=== PATIENT | female | born 1975 | race Caucasian/White ===

== ENCOUNTER 2017-04-18 18:01 | Emergency (ER) | payer OTHER ==
[~2017-04-18] VITALS: Ht 172.7 cm; Wt 65.8 kg
[2017-04-18] MEDS ORDERED: FAMOTIDINE. 20 MG/2 ML VIAL IV ONE ×2 (19:00→19:06)
[2017-04-18] MEDS ORDERED: methylPREDNISolone SOD SUCC 125 MG/2 ML VIAL IV ONE (19:00)
[2017-04-18] MEDS ORDERED: diphenhydrAMINE 50 MG/1 ML VIAL IV ONE (19:00)
[2017-04-18] MEDS ORDERED: diphenhydrAMINE 50 MG/1 ML VIAL ONE (19:06)
[2017-04-18] MEDS ORDERED: methylPREDNISolone SOD SUCC 125 MG/2 ML VIAL ONE (19:06)
--- NOTE | 2017-04-18 20:09 | NUR ---
Patient discharged to home in stable conditon. Written and verbal after care instructions given. Patient verbalizes understanding of instructions. pt staying at the bedside of her partner as partner had also checked in for medical attention... pt is alert, oriented x 3, no resp distress noted or reported upon discharge assessment...
[2017-04-18 20:10] VITALS: BP 97/62
== END 2017-04-18 20:12 | disposition home or self-care (01) ==
LOC: ER 18:06
DX: R21 Rash and other nonspecific skin eruption (principal); T78.2XXA Anaphylactic shock, unspecified, initial encounter
CPT/HCPCS: 96374; 96375; 99284; A4663; J1200; J2930; J3490

== ENCOUNTER 2017-04-30 23:08 | Emergency (ER) | payer OTHER ==
[~2017-04-30] VITALS: Ht 167.6 cm; Wt 61.7 kg
[2017-04-30] MEDS ORDERED: diphenhydrAMINE 50 MG/1 ML VIAL IV ONE (23:30)
[2017-04-30] MEDS ORDERED: methylPREDNISolone SOD SUCC 125 MG/2 ML VIAL IV ONE (23:30)
[2017-04-30] MEDS ORDERED: FAMOTIDINE. 20 MG/2 ML VIAL IV ONE ×2 (23:30→23:56)
[2017-04-30] MEDS ORDERED: methylPREDNISolone SOD SUCC 125 MG/2 ML VIAL ONE (23:56)
[2017-04-30] MEDS ORDERED: diphenhydrAMINE 50 MG/1 ML VIAL ONE (23:56)
[2017-05-01 00:04] LABS: BILIRUBIN,DIRECT 0.1 mg/dL (0.0-0.2); BILIRUBIN,TOTAL 0.4 mg/dL (0.2-1.0); CREATININE 0.9 mg/dL (0.6-1.3); POTASSIUM 4.1 mmol/L (3.5-5.1)
[2017-05-01 00:08] LABS: BASOPHILS # (AUTO) 0.3 K/uL (0.0-8.0); BASOPHILS % (AUTO) 1.7 % (0.0-2.0); EOSINOPHILS # (AUTO) 0.3 K/uL (0.0-0.7); EOSINOPHILS % (AUTO) 1.5 % (0.0-7.0); HEMATOCRIT 40.3 % (37-47); HEMOGLOBIN 13.2 G/DL (12.0-16.0); LYMPHOCYTES # (AUTO) 1.1 K/UL (0.8-4.8); LYMPHOCYTES % (AUTO) 6.1 % (20.5-51.5); MEAN CORPUSCULAR HEMOGLOBIN 29.4 UUG (27.0-31.0); MEAN CORPUSCULAR HGB CONC 33 g/dL (32.0-37.0); MEAN CORPUSCULAR VOLUME 89.3 FL (81.0-99.0); MONOCYTES # (AUTO) 0.6 K/UL (0.1-1.30); MONOCYTES % (AUTO) 3.1 % (0.0-11.0); NEUTROPHILS # (AUTO) 15.6 K/UL (1.8-8.9); NEUTROPHILS % (AUTO) 87.6 % (38.5-71.5); PLATELET COUNT (AUTO) 233 K/UL (150-450); RED BLOOD CELL COUNT(AUTO) 4.51 MIL/UL (4.2-5.4); WHITE BLOOD COUNT (AUTO) 17.9 K/UL (4.0-11.2)
--- NOTE | 2017-05-01 00:30 | NUR ---
Patient discharged to home in stable conditon. Written and verbal after care instructions given. Patient verbalizes understanding of instructions. Ambulated from ER with stable gait. Peripheral IV access removed. All belongings with patient. Patient will be driven home by significant other in a private vehicle. patient is aware not to drive or operate heavy machinery post Benadryl intake. Patient states will comply, private vehicle with party bus driver awaiting outside of ER for patient.
[2017-05-01 00:32] VITALS: BP 112/74
== END 2017-05-01 00:33 | disposition home or self-care (01) ==
LOC: ER 23:10
DX: F41.9 Anxiety disorder, unspecified (principal); R21 Rash and other nonspecific skin eruption
CPT/HCPCS: 36415; 84703; 85025; 85730; A4663; J1200; J2930; J3490

== ENCOUNTER → 2017-07-23 | Emergency (ER) | payer BC, MEDICAID ==
[~2017-07-23] VITALS: Ht 170.2 cm; Wt 56.7 kg
[2017-07-23 19:01] LABS: *URINE HCG, QUAL NEGATIVE (NEGATIVE)
--- NOTE | 2017-07-23 19:10 | NUR ---
DR. GOTTLIEB AT BEDSIDE FOR MSE.
[2017-07-23 19:17] LABS: BASOPHILS # (AUTO) 0.1 K/uL (0.0-8.0); BASOPHILS % (AUTO) 0.5 % (0.0-2.0); EOSINOPHILS # (AUTO) 0.3 K/uL (0.0-0.7); EOSINOPHILS % (AUTO) 2.8 % (0.0-7.0); HEMATOCRIT 39.4 % (37-47); HEMOGLOBIN 13.1 G/DL (12.0-16.0); LYMPHOCYTES # (AUTO) 2.3 K/UL (0.8-4.8); LYMPHOCYTES % (AUTO) 22.6 % (20.5-51.5); MEAN CORPUSCULAR HGB CONC 33 g/dL (32.0-37.0); MEAN CORPUSCULAR VOLUME 90.1 FL (81.0-99.0); MONOCYTES # (AUTO) 0.8 K/UL (0.1-1.30); MONOCYTES % (AUTO) 7.6 % (0.0-11.0); NEUTROPHILS # (AUTO) 6.8 K/UL (1.8-8.9); NEUTROPHILS % (AUTO) 66.5 % (38.5-71.5); PLATELET COUNT (AUTO) 260 K/UL (150-450); RED BLOOD CELL COUNT(AUTO) 4.38 MIL/UL (4.2-5.4); WHITE BLOOD COUNT (AUTO) 10.3 K/UL (4.0-11.2)
[2017-07-23 19:23] LABS: POTASSIUM 3.7 mmol/L (3.5-5.1)
[2017-07-23 19:35] LABS: BILIRUBIN,DIRECT 0.1 mg/dL (0.0-0.2); BILIRUBIN,TOTAL 0.3 mg/dL (0.2-1.0); TOTAL PROTEIN, SERUM 7.1 g/dL (6.4-8.2)
--- NOTE | 2017-07-23 20:52 | NUR ---
Patient discharged to home in stable conditon. Written and verbal after care instructions given. Patient verbalizes understanding of instructions. PATIENT LEFT WITH STABLE GAIT.
[2017-07-23 20:54] VITALS: BP 101/58
== END | disposition home or self-care (01) ==
LOC: ER 18:17
DX: M54.12 Radiculopathy, cervical region (principal)
CPT/HCPCS: 36415; 70030-TC; 71010; 84703; 85025; 85730; 93005; A4663

== ENCOUNTER 2018-09-04 07:49 | Emergency (ER) | payer BC, MEDICAID ==
[~2018-09-04] VITALS: Ht 167.6 cm; Wt 61.7 kg
[2018-09-04] MEDS ORDERED: OMEP20CA10 PO (07:59)
[2018-09-04] MEDS ORDERED: KETOROLAC TROMETHAMINE 30 MG INJ ONE (08:27)
[2018-09-04] MEDS ORDERED: MAG HYDROX/AL HYDROX/SIMETH 30 ML LIQUID UDC ONE (08:28)
[2018-09-04] MEDS ORDERED: MAG HYDROX/AL HYDROX/SIMETH 30 ML LIQUID UDC PO ONE (08:30)
[2018-09-04] MEDS ORDERED: KETOROLAC TROMETHAMINE 30 MG INJ IM ONE (08:30)
[2018-09-04 08:45] VITALS: BP 112/80
--- NOTE | 2018-09-04 08:46 | NUR ---
Patient discharged to home in stable conditon. Written and verbal after care instructions given. Patient verbalizes understanding of instructions.
== END 2018-09-04 08:46 | disposition home or self-care (01) ==
LOC: ER 07:49
DX: F41.9 Anxiety disorder, unspecified (principal); K21.9 Gastro-esophageal reflux disease without esophagitis
CPT/HCPCS: 93005; 96372; 99284; J1885; A4663

== ENCOUNTER 2018-09-09 09:32 | Emergency (ER) | payer MEDICAID ==
[~2018-09-09] VITALS: Ht 167.6 cm; Wt 58.1 kg
[~2018-09-09 09:32] MED LIST: OMEP20CA10 PO
--- NOTE | 2018-09-09 10:06 | NUR ---
Patient discharged to home in stable conditon. Written and verbal after care instructions given to patient. Patient verbalizes understanding of instructions.
== END 2018-09-09 10:07 | disposition home or self-care (01) ==
LOC: ER 09:32
DX: B80 Enterobiasis (principal); K21.9 Gastro-esophageal reflux disease without esophagitis
CPT/HCPCS: A4663

== ENCOUNTER 2019-02-07 18:34 | Emergency (ER) | payer MEDICAID ==
[~2019-02-07] VITALS: Ht 162.6 cm; Wt 62.1 kg
--- NOTE | 2019-02-07 19:47 | NUR ---
Dr. Callaway at bedside for MSE.
[2019-02-07] MEDS ORDERED: PANTOPRAZOLE SODIUM 40 MG TABLET.DR PO ONE ×2 (19:59→20:00)
[2019-02-07] MEDS ORDERED: MAG HYDROX/AL HYDROX/SIMETH 30 ML LIQUID UDC PO ONE (20:00)
[2019-02-07] MEDS ORDERED: MAG HYDROX/AL HYDROX/SIMETH 30 ML LIQUID UDC ONE (20:00)
--- NOTE | 2019-02-07 20:21 | NUR ---
Patient discharged to home in stable conditon. Written and verbal after care instructions given. Patient verbalizes understanding of instructions. Pt ambulated out of ER with steady gait, no acute signs of distress, VSS, all belongings taken.
[2019-02-07 20:22] VITALS: BP 101/70
== END 2019-02-07 20:23 | disposition home or self-care (01) ==
LOC: ER 18:34
DX: K29.70 Gastritis, unspecified, without bleeding (principal); K21.9 Gastro-esophageal reflux disease without esophagitis; Z79.899 Other long term (current) drug therapy
CPT/HCPCS: 93005; A4663

== ENCOUNTER 2019-04-22 11:20 | Emergency (ER) | payer MEDICAID ==
[~2019-04-22] VITALS: Ht 162.6 cm; Wt 61.2 kg
--- NOTE | 2019-04-22 12:02 | NUR ---
Patient discharged to home in stable conditon. Written and verbal after care instructions given. Patient verbalizes understanding of instructions. Stressed follow up.
== END 2019-04-22 12:06 | disposition home or self-care (01) ==
LOC: ER 11:20
DX: H00.14 Chalazion left upper eyelid (principal); K21.9 Gastro-esophageal reflux disease without esophagitis
CPT/HCPCS: A4663

== ENCOUNTER 2019-04-23 20:49 | Emergency (ER) | payer MEDICAID ==
[~2019-04-23] VITALS: Ht 165.1 cm; Wt 63.5 kg
--- NOTE | 2019-04-23 21:14 | NUR ---
Pt. ambulated into ED w/ c/o L eye pain, was seen x2 days ago for chalazion and given eye drop abx,
[2019-04-23] MEDS ORDERED: TETRACAINE HCL 0.5% OPHT DROP 2 ML BOTTLE ONE (21:24)
[2019-04-23] MEDS ORDERED: FLUORESCEIN SODIUM 1 MG STRIP ONE ×2 (21:25→21:52)
[2019-04-23] MEDS ORDERED: FLUORESCEIN SODIUM 1 MG STRIP OP ONE ×2 (21:30→22:00)
[2019-04-23] MEDS ORDERED: TETRACAINE HCL 0.5% OPHT DROP 2 ML BOTTLE OP ONE (21:30)
--- NOTE | 2019-04-23 21:32 | NUR ---
at bedside for opthalmic assesment,
[2019-04-23] MEDS ORDERED: VALACYCLOVIR HCL 500 MG TABLET ONE (22:13)
[2019-04-23] MEDS ORDERED: VALACYCLOVIR HCL 500 MG TABLET PO ONE (22:15)
--- NOTE | 2019-04-23 22:21 | NUR ---
Patient discharged to home in stable conditon. Written and verbal after care instructions given. Patient verbalizes understanding of instructions. Pt. d/c per MD order w/ prescriptions, d/c papers signed, all belongings w/ pt., ID band removed, ambulated off unit accompanied by daughter, instructed to follow up w/ Opthalmologist and ENT MDs, NAD
== END 2019-04-23 22:24 | disposition home or self-care (01) ==
LOC: ER 20:51
DX: B02.9 Zoster without complications (principal); K21.9 Gastro-esophageal reflux disease without esophagitis; F41.9 Anxiety disorder, unspecified
CPT/HCPCS: 99284; J7060; A4663

== ENCOUNTER 2019-08-15 09:32 | Emergency (ER) | payer MEDICAID ==
[~2019-08-15] VITALS: Ht 172.7 cm; Wt 61.7 kg
[2019-08-15 10:11] LABS: BASOPHILS % (AUTO) 0.5 % (0.0-2.0); EOSINOPHILS # (AUTO) 0.1 K/uL (0.0-0.7); EOSINOPHILS % (AUTO) 1.3 % (0.0-7.0); HEMATOCRIT 40.5 % (31.2-41.9); HEMOGLOBIN 13.5 g/dL (10.9-14.3); LYMPHOCYTES # (AUTO) 1.4 K/uL (20.0-40.0); LYMPHOCYTES % (AUTO) 17.2 % (20.5-51.5); MEAN CORPUSCULAR HEMOGLOBIN 30.7 uug (24.7-32.8); MEAN CORPUSCULAR HGB CONC 33 g/dL (32.3-35.6); MEAN CORPUSCULAR VOLUME 92.2 fL (75.5-95.3); MONOCYTES # (AUTO) 0.6 K/uL (2.0-10.0); MONOCYTES % (AUTO) 7.7 % (0.0-11.0); NEUTROPHILS % (AUTO) 73.3 % (38.5-71.5); PLATELET COUNT (AUTO) 275 K/uL (179-408); RED BLOOD CELL COUNT(AUTO) 4.39 MIL/uL (3.63-4.92); WHITE BLOOD COUNT (AUTO) 8.2 K/uL (3.8-11.8)
[2019-08-15 10:15] LABS: CREATININE 0.8 mg/dL (0.6-1.3); POTASSIUM 4.9 mmol/L (3.5-5.1)
[2019-08-15 10:21] LABS: BILIRUBIN,TOTAL 0.4 mg/dL (0.2-1.0); TOTAL PROTEIN, SERUM 7.2 g/dL (6.4-8.2)
--- NOTE | 2019-08-15 12:26 | NUR ---
Patient discharged to home in stable conditon. Written and verbal after care instructions given. Patient verbalizes understanding of instructions.
[2019-08-15 12:27] VITALS: BP 112/63
== END 2019-08-15 12:28 | disposition home or self-care (01) ==
LOC: ER 09:32
DX: R00.2 Palpitations (principal); K21.9 Gastro-esophageal reflux disease without esophagitis; F41.9 Anxiety disorder, unspecified
CPT/HCPCS: 36415; 70030-TC; 71045; 84443; 85025; 93005; A4663

== ENCOUNTER 2019-09-08 18:21 | Emergency (ER) | payer MEDICAID ==
[~2019-09-08] VITALS: Ht 167.6 cm; Wt 61.2 kg
[2019-09-08] MEDS ORDERED: OSELTAMIVIR PHOSPHATE 75 MG CAPSULE PO ONE (19:45)
[2019-09-08] MEDS ORDERED: OSELTAMIVIR PHOSPHATE 75 MG CAPSULE ONE (19:49)
[2019-09-08 19:58] VITALS: BP 125/77
--- NOTE | 2019-09-08 19:58 | NUR ---
Patient discharged to home in stable conditon. Written and verbal after care instructions given. Patient verbalizes understanding of instructions. walked out of ER with no distress noted.
== END 2019-09-08 19:59 | disposition home or self-care (01) ==
LOC: ER 18:21
DX: J11.1 Influenza due to unidentified influenza virus with other respiratory manifestations (principal); K21.9 Gastro-esophageal reflux disease without esophagitis; F41.9 Anxiety disorder, unspecified
CPT/HCPCS: 71045; 87400; A4663

== ENCOUNTER 2019-09-30 10:29 | Emergency (ER) | payer MEDICAID ==
[~2019-09-30] VITALS: Ht 170.2 cm; Wt 59.0 kg
--- NOTE | 2019-09-30 10:58 | NUR ---
Patient states she was seen bt MD 2 weeks ago for flu like sx. Patient states symptoms have both improved. Reports headache, fever, severe sore throat, pain while breathing and cough. Patient states her feeling sick has "affected her nerves" and she can not stop crying. reports feeling anxious. States she had an anxiety attack 2 years ago.
[2019-09-30] MEDS ORDERED: BENZONATATE 100 MG CAPSULE ONE (11:07)
[2019-09-30] MEDS ORDERED: ACETAMINOPHEN ES 500 MG TABLET ONE (11:10)
[2019-09-30] MEDS ORDERED: LORAZEPAM 0.5 MG TABLET ONE (11:10)
[2019-09-30] MEDS ORDERED: LORAZEPAM 0.5 MG TABLET PO ONE (11:15)
[2019-09-30] MEDS ORDERED: ACETAMINOPHEN ES 500 MG TABLET PO ONE (11:15)
[2019-09-30] MEDS ORDERED: BENZONATATE 100 MG CAPSULE PO ONE (11:15)
--- NOTE | 2019-09-30 12:10 | NUR ---
Patient discharged to home in stable conditon. Written and verbal after care instructions given. Patient verbalizes understanding of instructions. Patient ambulated with stable gait.
[2019-09-30 12:11] VITALS: BP 123/64
== END 2019-09-30 12:13 | disposition home or self-care (01) ==
LOC: ER 10:29
DX: J20.9 Acute bronchitis, unspecified (principal); K21.9 Gastro-esophageal reflux disease without esophagitis; F41.9 Anxiety disorder, unspecified
CPT/HCPCS: 87400; A4663; A9150

== ENCOUNTER 2021-04-12 09:21 | Emergency (ER) | payer MEDICAID ==
[~2021-04-12] VITALS: Ht 170.2 cm; Wt 65.8 kg
--- NOTE | 2021-04-12 09:50 | NUR ---
[email or web address], medical screening exam in progress
[2021-04-12] MEDS ORDERED: ACETAMINOPHEN ES 500 MG TABLET ONE (10:15)
[2021-04-12] MEDS ORDERED: ACETAMINOPHEN ES 500 MG TABLET PO ONE (10:15)
[2021-04-12 10:46] LABS: HEMATOCRIT 39.6 % (31.2-41.9); MEAN CORPUSCULAR VOLUME 90.2 fL (75.5-95.3); PLATELET COUNT (AUTO) 275 K/uL (179-408)
[2021-04-12 10:54] LABS: CREATININE 0.6 mg/dL (0.6-1.3); POTASSIUM 4.1 mmol/L (3.5-5.1)
[2021-04-12 10:55] LABS: BILIRUBIN,DIRECT 0.2 mg/dL (0.0-0.2); BILIRUBIN,TOTAL 0.6 mg/dL (0.2-1.0); TOTAL PROTEIN, SERUM 6.7 g/dL (6.4-8.2)
--- NOTE | 2021-04-12 12:01 | NUR ---
Crutches dispensed. Patient was instructed on proper use of crutches. Patient was able to demonstrate correct use of crutches but prefers wheelchair and walker notified.
--- NOTE | 2021-04-12 12:11 | NUR ---
Patient wanted prescription for wheelchair or walker, ibuprofen & Tylenol notified. CD copy of all the radiology tests provided. Paper copies of all the tests' results were also given to patient. Patient discharged to home in stable condition. Written and verbal after care instructions given to patient and family. Patient verbalized understanding & compliance of instructions. Stressed follow up with neurologist, orthopedic and her primary doctor or return to ER for worsening s/s.
[2021-04-12] MEDS ORDERED: ACET-73 PO (12:15)
[2021-04-12] MEDS ORDERED: [UNRECOGNIZED DRUG - CODE] PO (12:15)
== END 2021-04-12 12:11 | disposition home or self-care (01) ==
LOC: ER 09:21
DX: S89.92XA Unspecified injury of left lower leg, initial encounter (principal); W18.39XA Other fall on same level, initial encounter; Y92.831 Amusement park as the place of occurrence of the external cause; Y99.8 Other external cause status; S62.664D Nondisplaced fracture of distal phalanx of right ring finger, subsequent encounter for fracture with routine healing; W19.XXXD Unspecified fall, subsequent encounter; R29.6 Repeated falls; K21.9 Gastro-esophageal reflux disease without esophagitis
CPT/HCPCS: 36415; 70450; 73130; 85025; 93005; A4663; A9150